=== PATIENT | female | born 1985 | race African-American/Black ===

== ENCOUNTER 2018-10-08 13:14 | Emergency (ER) | payer MEDICAID ==
[~2018-10-08] VITALS: Ht 160 cm; Wt 108.9 kg
[2018-10-08] MEDS ORDERED: MULT-1177 PO (13:27)
--- NOTE | 2018-10-08 13:40 | NUR ---
PATIENT WAS MSE BY DR DARNELL IN ROOM 02B.
--- NOTE | 2018-10-08 13:55 | NUR ---
[facility]AR[facility] WAS CALLED LEFT MESSAGE.
--- NOTE | 2018-10-08 14:01 | NUR ---
Patient eloped from facility. ER physician notified.
== END 2018-10-08 14:04 | disposition left against medical advice (07) ==
LOC: ER 13:14
DX: S39.92XA Unspecified injury of lower back, initial encounter (principal); Z79.899 Other long term (current) drug therapy; X58.XXXA Exposure to other specified factors, initial encounter; Y93.89 Activity, other specified; Y92.89 Other specified places as the place of occurrence of the external cause; Y99.8 Other external cause status
CPT/HCPCS: A4663